=== PATIENT | female | born 1995 | race Caucasian/White ===

== ENCOUNTER 2017-01-17 18:11 | Emergency (ER) | payer OTHER ==
[2017-01-17 18:21] VITALS: BP 124/69
--- NOTE | 2017-01-17 18:49 | UC ---
FLU HPI - HPI Summary HPI Summary: pt presents with c/o of sore throat, cough, nasal congestion, body aches, X 3 days. - History of Current Complaint Chief Complaint: UCRespiratory Stated Complaint: SORE THROAT/EAR PAIN Time Seen by Provider: 01/17/17 18:42 Hx Obtained From: Patient Hx Last Menstrual Period: irreg, on depo shot ?: No Onset/Duration: Gradual Onset, Lasting Days Severity Currently: Mild Severity Initially: Mild - Allergy/Home Medications Allergies/Adverse Reactions: Allergies Allergy/AdvReac Type Severity Reaction Status Date / Time Penicillins Allergy Mild Rash Verified 01/17/17 18:21 Home Medications: Home Medications Acetaminophen [Acetaminophen Extra Stren] 500 mg PO ONCE PRN 01/17/17 [History Confirmed 01/17/17] medroxyPROGESTERone ACETATE* [DEPO-Provera*] 150 mg IM ONCE 01/17/17 [History Confirmed 01/17/17] PMH/Surg Hx/FS Hx/Imm Hx Previously Healthy: Yes Endocrine History Of: Denies: Diabetes, Thyroid Disease Cardiovascular History Of: Denies: Cardiac Disorders, Hypertension Respiratory History Of: Denies: COPD, Asthma GI/ History Of: Denies: Ulcer - Surgical History Surgical History: None - Family History Known Family History: Positive: Other - positive [facility] for URI Family History: no cardiovascular issues in family lineage - Social History Alcohol Use: None Substance Use Type: None Smoking Status (MU): Current Every Day Smoker Type: Cigarettes Amount Used/How Often: 3-4 PER DAY Length of Time of Smoking/Using Tobacco: since age 16 Have You Smoked in the Last Year: Yes Household Exposure Type: Cigarettes Review of Systems Constitutional: Fever, Chills Skin: Negative Eyes: Negative ENT: Sore Throat, Other - nasal congestion, sinus pressure Respiratory: Cough Cardiovascular: Negative Gastrointestinal: Negative Genitourinary: Negative Motor: Negative Neurovascular: Negative Musculoskeletal: Myalgia Neurological: Negative Psychological: Negative All Other Systems Reviewed And Are Negative: Yes Physical Exam Triage Information Reviewed: Yes Appearance: Ill-Appearing Vital Signs: Initial Vital Signs Temp 99.8 F 01/17/17 18:18 Pulse 113 01/17/17 18:18 Resp 14 01/17/17 18:18 BP 124/69 01/17/17 18:18 Pulse Ox 94 04/29/17 18:18 Vital Signs Reviewed: Yes Eye Exam: Normal ENT Exam: Other ENT: Positive: Nasal congestion, TMs normal - bilateral, Other: - PND, maxillary sinus tenderness Neck exam: Normal Respiratory Exam: Normal Cardiovascular Exam: Normal Musculoskeletal Exam: Normal Neurological Exam: Normal Psychological Exam: Normal Skin Exam: Normal Flu Course/Dx - Differential Dx/Diagnosis Differential Diagnosis/HQI/PQRI: Bronchitis, Influenza, Other - allergies Provider Diagnoses: bronchitis. allergies Discharge - Discharge Plan Condition: Stable Disposition: HOME Prescriptions: Azithromycin TAB* [Zithromax TAB (Z-DILAN) 250 mg #6 tabs] 250 mg PO DAILY #4 tab Benzonatate CAP* [Tessalon 100 MG CAP*] 100 mg PO TID #30 cap Loratadine [Claritin 10 MG CAP] 10 mg PO DAILY #14 cap Patient Education Materials: Acute Bronchitis (ED), Allergies (ED) Forms: *Work Release Referrals: Jaycob Dunn DO [Primary Care Provider] - Additional Instructions: Please follow up with your PCP or return to clinic
[2017-01-17] MEDS ORDERED: Azithromycin TAB* 250 MG PO ONE (18:52)
[2017-01-17] MEDS ORDERED: Benzonatate CAP* 100 MG PO ONE (18:52)
[2017-01-17] MEDS ORDERED: LoraTADine TAB(NF) 10 MG TAB (AUTOSUB CETIRIRIZINE) PO ONE (18:52)
== END 2017-01-17 19:01 | disposition home or self-care (01) ==
LOC: UCCORT 18:11
DX: J40 Bronchitis, not specified as acute or chronic (principal); J31.0 Chronic rhinitis; Z88.0 Allergy status to penicillin; F17.210 Nicotine dependence, cigarettes, uncomplicated
CPT/HCPCS: 87502; 99212; A9270-GY; G0463

== ENCOUNTER 2017-03-31 13:23 | Emergency (ER) | payer OTHER ==
[2017-03-31 13:56] VITALS: BP 119/62
[2017-03-31] MEDS ORDERED: Ondansetron ODT TAB* 4 MG PO ONE (14:01)
[2017-03-31] MEDS ORDERED: Ketorolac INJ* 60 MG/2 ML VIAL IM ONE (14:17)
--- NOTE | 2017-03-31 14:22 | UC ---
Complaint Female HPI - HPI Summary HPI Summary: 22 y/o female presents to the urgent care c/o lower back pain radiating to R/L flank starting 0100 today. Then she develops vomiting with 6 episodes since this morning. Pt states this morning she woke up w/ headache and took some tylenol. Back Pain and PAYTON is 9/10 constant, worse when sitting/walking, feels a little better when lying down. Pt denies Fever, abdominal pain, SOB, chest pain, urinary symptoms, vaginal discharge, HX of STDs. LMP 02/19/2017. - History Of Current Complaint Chief Complaint: UCGeneralIllness Stated Complaint: VOMITTING,LOW BACK PAIN,PAYTON (? KIDNEYS) Time Seen by Provider: 03/31/17 13:59 Hx Obtained From: Patient Hx Last Menstrual Period: ON DEPO CONTROL ?: No Onset/Duration: Sudden Onset, Lasting Hours, Still Present Timing: Constant Severity Initially: Moderate Severity Currently: Severe Pain Intensity: 9 Pain Scale Used: 0-10 Numeric Character: Sharp Aggravating Factor(s): Movement Alleviating Factor(s): Position - laying down Associated Signs And Symptoms: Positive: Back Pain, Nausea, Vomiting(# Of Episodes =) - 6 episodes. Negative: Fever, Vaginal Bleeding/Discharge, Vaginal Discharge - Risk Factors Ectopic Risk Factor: Negative Ovarian Torsion Risk Factor: Negative - Allergies/Home Medications Allergies/Adverse Reactions: Allergies Allergy/AdvReac Type Severity Reaction Status Date / Time Penicillins Allergy Mild Rash Verified 03/31/17 13:46 PMH/Surg Hx/FS Hx/Imm Hx Previously Healthy: Yes - Surgical History Surgical History: None - Family History Known Family History: Positive: Other - positive [facility] for URI Family History: no cardiovascular issues in family lineage - Social History Occupation: Employed Full-time Lives: With Family Alcohol Use: None Substance Use Type: None Smoking Status (MU): Current Every Day Smoker Type: Cigarettes Amount Used/How Often: 3-4 PER DAY Length of Time of Smoking/Using Tobacco: since age 16 Have You Smoked in the Last Year: Yes Household Exposure Type: Cigarettes - Immunization History Most Recent Influenza Vaccination: 2016 Most Recent Tetanus Shot: UTD Most Recent Pneumonia Vaccination: N/A Review of Systems Constitutional: Negative Skin: Negative Eyes: Negative ENT: Negative Respiratory: Negative Cardiovascular: Negative Gastrointestinal: Vomiting, Nausea Genitourinary: Negative Motor: Negative Neurovascular: Negative Musculoskeletal: Other: - severe flank painradiating to the lower back. Neurological: Headache - severe temporal PAYTON Psychological: Negative All Other Systems Reviewed And Are Negative: Yes Physical Exam Triage Information Reviewed: Yes Appearance: Well-Appearing, Well-Nourished, Pain Distress - moderate, Thin Vital Signs: Initial Vital Signs Temp 99.9 F 03/31/17 13:47 Pulse 93 03/31/17 13:47 Resp 16 03/31/17 13:47 BP 119/62 03/31/17 13:47 Pulse Ox 100 03/31/17 13:47 Vital Signs Reviewed: Yes Eyes: Positive: Conjunctiva Clear - PERRLA, EOMI, fundi grossly normal ENT Exam: Normal ENT: Positive: Normal ENT inspection, Hearing grossly normal, Pharynx normal, TMs normal Dental Exam: Normal Neck exam: Normal Neck: Positive: Supple, Nontender, No Lymphadenopathy Respiratory Exam: Normal Respiratory: Positive: Chest non-tender, Lungs clear, Normal breath sounds Cardiovascular Exam: Normal Cardiovascular: Positive: RRR, No Murmur, Pulses Normal, Brisk Capillary Refill Abdominal Exam: Normal Abdomen Description: Positive: Nontender, No Organomegaly, Soft. Negative: CVA Tenderness (R), CVA Tenderness (L) Bowel Sounds: Positive: Present Musculoskeletal Exam: Normal Musculoskeletal: Positive: Other: - tenderness on deep palpation at the level of L5-S1 and B/L spinal muscle tenderness. FROM of back. mild swelling observe at this level, no erythema or rash observed. Neurological Exam: Normal Psychological Exam: Normal Skin Exam: Normal Complaint Female Dx - Course Course Of Treatment: 22 y/o female presents to the urgent care c/o lower back pain radiating to R/L flank starting 0100 today. Then she develops vomiting with 6 episodes since this morning. Pt states this morning she woke up w/ headache and took some tylenol. Back Pain and PAYTON is 9/10 constant, worse when sitting/walking, feels a little better when lying down. Pt denies Fever, abdominal pain, SOB, chest pain, urinary symptoms, vaginal discharge, HX of STDs. LMP 02/19/2017. Hx obtained. PE abnormal findings: Heead: tenderness on palpation of temporal area. Musculoskeletal: Positive: Other: - tenderness on deep palpation at the level of L5-S1 and B/L spinal muscle tenderness. FROM of back. mild swelling observe at this level, no erythema or rash observed. UA ordered: Results: positive trace of blood, Ketones 3+, bili1+, test: negative. Pt given Zofran 4mg PO 1 tab to alleviate vomiting. Toradol IM inj to alleviate PAYTON and Lower back pain. Pt tolerated well inj. Pt denies vaginal discharge, HX of STD's LMP: 02/19/2017 with Depo. Case discussed with Dr Yang and he advised to order a an abdominal/pelvic Ct w/o contrast to r/o a kidney stone. CT ordered. Impression: No CT evidence of urolithiasis. Pt evaluated 2nd time after CT. Pt back pain and PAYTON decrease 02/28. Vomiting stopped and pt feeiling better. Pt Rx Zofran and Ibuprofen to alleviate symptoms. Advised to increase fluid intake to avoid dehydration w/ Pedialyte or gatorade. eat soft meals and rest. Pt advised if symptoms worsen to go immediately to the ER , otherwise to f/u with her PCP in 2-3 days for further evaluation and treatment. Pt understood and agreed and left the clinic ambulating and feeling better. - Differential Dx/Diagnosis Differential Diagnosis/HQI/PQRI: Appendicitis, Cervicitis, Ovarian Torsion, Renal Colic, Ureteral Stone, Urinary Tract Infection Provider Diagnoses: Lower back pain, acute vomiting, - Physician Notifications Discussed Patient Care With: Livan Packer - Dr Packer agreed with pt's care and tx Discharge - Discharge Plan Condition: Stable Disposition: HOME Prescriptions: Ibuprofen TAB* [Motrin TAB* 800 MG] 800 mg PO Q6H #30 tab Ondansetron TAB* [Zofran 4 MG Tab*] 4 mg PO Q6H PRN #12 tab PRN Reason: Vomiting Patient Education Materials: Acute Low Back Pain (ED), General Headache (ED) Forms: *Work Release Referrals: Jaycob Dunn DO [Primary Care Provider] - 3 Days Additional Instructions: Please take medications as instructed to alleviate symptoms, Increase fluid intake by drinking Pedialyte OTC or gatorate, east soft meals and rest. If symptoms worsen please go to the ED immediately or return to the urgent care. F /u with your PCP in 2-3 days.
--- NOTE | 2017-03-31 14:58 | RAD ---
INDICATION: Back pain. Kidney stones. COMPARISON: None TECHNIQUE: Noncontrast axial source images were acquired from the level hemidiaphragms to the symphysis pubis as part of CT imaging for renal stone. Lung bases: The lung bases are clear. Liver: The liver is normal in size. Noncontrast imaging shows no evidence of a hepatic mass or ductal dilatation. Gallbladder: There are no calcified gallstones. There is no evidence of wall thickening or pericholecystic fluid.. Spleen: The spleen is normal in size. The noncontrast CT appearance is normal. Pancreas: Noncontrast imaging shows no pancreatic mass or ductal dilitation. Adrenal glands: No masses are identified. Kidneys/Bladder: There is no evidence of nephrolithiasis or CT evidence of hydronephrosis. Noncontrast imaging shows no evidence of a renal mass. The bladder is unremarkable.. Adenopathy: There is no evidence of intraperitoneal or retroperitoneal adenopathy. Evaluation is limited without oral contrast. Fluid collections: There are no free or localized fluid collections. Vessels: The aorta and iliac vessels are normal in caliber. There are no significant atherosclerotic changes. The IVC appears normal Pelvic organs: The uterus and adnexa appear normal GI tract: Evaluation of the bowel is limited without oral contrast. The stomach, small bowel, and lower GI tract appear grossly normal. There are no obstructive findings. The appendix is visualized and appears normal. Soft tissues: No soft tissue abnormalities of the extraperitoneal abdomen or pelvis are identified. Osseous structures: There are no acute osseous findings. IMPRESSION: NO CT EVIDENCE OF UROLITHIASIS. NO ACUTE CT FINDINGS.
== END 2017-03-31 15:33 | disposition home or self-care (01) ==
LOC: UCCORT 13:23
DX: M54.5 Low back pain (principal); R11.11 Vomiting without nausea; Z72.0 Tobacco use
CPT/HCPCS: 74176; 81003; 84702; 96372; 99212; A9270-GY; G0463; J1885

== ENCOUNTER 2017-04-29 10:28 | Emergency (ER) | payer SELFPAY ==
[2017-04-29 10:33] VITALS: BP 135/80
--- NOTE | 2017-04-29 11:12 | ED ---
Upper Extremity Pain - HPI Summary HPI Summary: 22F presents with left wrist/forearm pain today. She admits to numbness over the thumb. She states she was rolling a patient and felt a pop. There is an area of warmth and pain on the radial aspect of her forearm. She denies any previous injury to the area. 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 She had her wrist flexed when she did it. She is right handed. She denies any tingling. She took ibuprofen for pain. - History of Current Complaint Chief Complaint: EDExtremityUpper Stated Complaint: LT WRIST INJURY Time Seen by Provider: 04/29/17 10:34 Hx Last Menstrual Period: ON DEPO CONTROL - Allergies/Home Medications Allergies/Adverse Reactions: Allergies Allergy/AdvReac Type Severity Reaction Status Date / Time Penicillins Allergy Mild Rash Verified 04/29/17 11:09 PMH/Surg Hx/FS Hx/Imm Hx Endocrine/Hematology History: Denies: Hx Diabetes, Hx Thyroid Disease Cardiovascular History: Denies: Hx Hypertension Respiratory History: Denies: Hx Asthma, Hx Chronic Obstructive Pulmonary Disease (COPD) GI History: Denies: Hx Ulcer Infectious Disease History: No Infectious Disease History: Reports: Hx Shingles Denies: Hx Clostridium Difficile, Hx Hepatitis, Hx Human Immunodeficiency Virus (HIV), Hx of Known/Suspected MRSA, Hx Tuberculosis, Hx Known/Suspected VRE , Hx Known/Suspected VRSA, History Other Infectious Disease, Traveled Outside the [place] in Last 30 Days - Family History Known Family History: Positive: Other - positive [facility] for URI Family History: no cardiovascular issues in family lineage - Social History Alcohol Use: None Substance Use Type: Reports: None Smoking Status (MU): Current Every Day Smoker Type: Cigarettes Amount Used/How Often: 3-4 PER DAY Length of Time of Smoking/Using Tobacco: since age 16 Have You Smoked in the Last Year: Yes Review of Systems Negative: Fever Negative: Chest Pain Negative: Shortness Of Breath Positive: Myalgia - left wrist All Other Systems Reviewed And Are Negative: Yes Physical Exam Triage Information Reviewed: Yes Vital Signs On Initial Exam: Initial Vitals Temp Pulse Resp BP Pulse Ox 97.5 F 75 16 135/80 100 04/29/17 10:30 04/29/17 10:30 04/29/17 10:30 04/29/17 10:30 04/29/17 10:30 Vital Signs Reviewed: Yes Appearance: Positive: Well-Appearing Skin: Positive: Warm, Dry, Other - warmth to left midforearm on radial aspect with small swelling that feels like muscle ball Head/Face: Positive: Normal Head/Face Inspection Eyes: Positive: Normal, Conjunctiva Clear Respiratory/Lung Sounds: Positive: Clear to Auscultation, Breath Sounds Present Cardiovascular: Positive: Normal, RRR Musculoskeletal: Positive: Strength/ROM Intact - left wrist with pain, Other - tenderness along radial aspect of wrist to thumb, neg snuff box tenderness, pos teddy test, able to oppose all fingers, good sizing machine tender strength, good pulses, capillary refill<2secs Procedures - Splinting Location: left wrist Pre-Made Type: velcro Splint: thumb spica Pre-Proc Neuro Vasc Exam: normal Post-Proc Neuro Vasc Exam: normal Diagnostics - Vital Signs Vital Signs Temp Pulse Resp BP Pulse Ox 04/29/17 10:43 97.5 F 75 16 135/80 98 04/29/17 10:30 97.5 F 75 16 135/80 100 - Laboratory Lab Statement: Any lab studies that have been ordered have been reviewed, and results considered in the medical decision making process. - Radiology wrist and forearm Xray Interpretation: No Acute Changes Radiology Interpretation Completed By: Radiologist Course/Dx - Course Course Of Treatment: 22F presents with left wrist/forearm pain today. She admits to numbness over the thumb. She states she was rolling a patient and felt a pop. There is an area of warmth and pain on the radial aspect of her forearm. She denies any previous injury to the area. 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 She had her wrist flexed when she did it. She is right handed. She denies any tingling. She took ibuprofen for pain. on exam pos teddy test, full ROM of finger, feel a potential muscle tear in forearm as small ball of muscle felt. xray normal. placed in thumb spica splint and told to follow up with ortho. patient understands and agrees with plan. - Diagnoses Differential Diagnosis/HQI/PQRI: Positive: Fracture (Closed), Strain, Sprain Provider Diagnoses: Left wrist pain Discharge - Discharge Plan Condition: Good Disposition: HOME Patient Education Materials: De Quervain Disease (ED) Forms: *Work Release Referrals: Erasmo Suresh MD [Medical Doctor] - Jaycob Dunn DO [Primary Care Provider] - Additional Instructions: You potentially have a muscle tear/tendon injury Follow up with primary and if no improvement ortho Keep in brace Take Tylenol or ibuprofen every 6 hours as needed for pain Apply ice, rest Return to ED if develop any new or worsening symptoms
--- NOTE | 2017-04-29 13:21 | RAD ---
INDICATION: Distal LEFT radius pain following pushing injury. COMPARISON: February 26, 2010 TECHNIQUE: AP, lateral, and oblique views LEFT wrist. AP and lateral views LEFT forearm. REPORT AND IMPRESSION: Normal articular alignment at the elbow and wrist. Negative for fracture. Mild soft tissue swelling along the distal radial aspect of the forearm and wrist.
== END 2017-04-29 12:16 | disposition home or self-care (01) ==
LOC: ED 10:28
DX: M25.532 Pain in left wrist (principal); F17.210 Nicotine dependence, cigarettes, uncomplicated
CPT/HCPCS: 99282